=== PATIENT | male | born 1995 | race Asian ===

== ENCOUNTER 2017-08-25 16:30 | Emergency (ER) | payer OTHER ==
[2017-08-25 16:39] VITALS: BP 140/69
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
== END 2017-08-25 17:30 | disposition home or self-care (01) ==
DX: S86.911A Strain of unspecified muscle(s) and tendon(s) at lower leg level, right leg, initial encounter (principal); V18.4XXA Pedal cycle driver injured in noncollision transport accident in traffic accident, initial encounter; Y92.410 Unspecified street and highway as the place of occurrence of the external cause; Y99.8 Other external cause status; Y93.55 Activity, bike riding